=== PATIENT | female | born 1985 | race Caucasian/White ===

== ENCOUNTER 2018-10-18 04:21 | Emergency (ER) | payer MEDICARE, MEDICAID ==
[2018-10-18] MEDS ORDERED: Naproxen TAB* 250 MG PO ONE (04:32)
[2018-10-18] MEDS ORDERED: Clindamycin CAP* 150 MG PO ONE (04:32)
[2018-10-18] MEDS ORDERED: Bupivacaine 0.5% W/EPI SDV* 30 ML VIAL INJ ONE (04:32)
--- NOTE | 2018-10-18 05:02 | ED ---
Throat Pain/Nasal Congestion - HPI Summary HPI Summary: Pt is a 33 y/o F presenting to the ED with a chief complaint of dental pain onset yesterday with rapid increase rated about 9/10. Pt was flossing 2 days ago and believes she irritated the gums. She reports nausea, pain, and sore throat. Pt denies fever, chills, chest pain, shortness of breath, headache, dizziness, or cough. She has taken ibuprofen and Tylenol. Pt is a resident at [facility] for alcoholism. Pt denies hx of asthma, COPD, diabetes, thyroid issues, endocarditis, or bowel disease. - History of Current Complaint Chief Complaint: EDDentalPain Time Seen by Provider: 10/18/18 04:32 Hx Obtained From: Patient Onset/Duration: Sudden Onset, Lasting Days, Still Present Severity: Severe - Allergies/Home Medications Allergies/Adverse Reactions: Allergies Allergy/AdvReac Type Severity Reaction Status Date / Time amoxicillin Allergy Hives Verified 10/18/18 04:26 Penicillins Allergy Hives Verified 10/18/18 04:26 Sulfa (Sulfonamide Allergy Hives Verified 10/18/18 04:26 Antibiotics) PMH/Surg Hx/FS Hx/Imm Hx Previously Healthy: No Endocrine/Hematology History: Denies: Hx Diabetes, Hx Thyroid Disease Respiratory History: Denies: Hx Asthma, Hx Chronic Obstructive Pulmonary Disease (COPD) GI History: Denies: Other GI Disorders Psychiatric History: Reports: Hx Anxiety, Hx Attention Deficit Hyperactivity Disorder, Hx Substance Abuse Infectious Disease History: No Infectious Disease History: Denies: Traveled Outside the [place] in Last 30 Days - Family History Known Family History: Positive: Diabetes - Social History Lives: [facility] - [facility] Alcohol Use: recovering alcoholic 2mos clean Hx Substance Use: Yes Substance Use Type: Reports: Cocaine, Heroin, Marijuana Hx Tobacco Use: Yes Smoking Status (MU): Former Smoker - on and off since 16 y/o Review of Systems Negative: Fever, Chills Positive: Dental Pain Negative: Chest Pain Negative: Shortness Of Breath, Cough Neurological: Negative - dizziness Negative: Headache All Other Systems Reviewed And Are Negative: Yes Physical Exam - Summary Physical Exam Summary: Appearance: Well appearing, no pain distress Skin: warm, dry, reflects adequate perfusion Head/face: normal Eyes: EOMI, DONNA ENT: mucous membranes moist. SL residual L mandibular gingiva, prior removal of second L pre-molar, first L pre-molar eroded to gum line. Neck: supple, non-tender Respiratory: CTA, breath sounds present Cardiovascular: RRR, pulses symmetrical Abdomen: non-tender, soft Bowel Sounds: present Musculoskeletal: normal, strength/ROM intact Neuro: normal, sensory motor intact, A&Ox3 Triage Information Reviewed: Yes Vital Signs On Initial Exam: Initial Vitals Temp Pulse Resp BP Pulse Ox 98.6 F 76 16 135/87 96 10/18/18 04:23 10/18/18 04:23 10/18/18 04:23 10/18/18 04:23 10/18/18 04:23 Vital Signs Reviewed: Yes Procedures - Procedure Summary Procedure Summary: Dental block performed for pain: An inferior alveolar nerve block was performed in the left maxilla with a total of 3 cc of 0.25% bupivacaine with epinephrine. This produced total relief of pain. She tolerated the procedure well without complication. Diagnostics - Vital Signs Vital Signs Temp Pulse Resp BP Pulse Ox 10/18/18 04:23 98.6 F 76 16 135/87 96 - Laboratory Lab Statement: Any lab studies that have been ordered have been reviewed, and results considered in the medical decision making process. Re-Evaluation - Re-Evaluation 1 Re-Evaluation Time: 05:06 Change: Improved Comment: Pain is better with nerve block, pt will be discharged with instructions to follow up with dentist. EENT Course/Dx - Course Course Of Treatment: Nurse's notes reviewed. Gingival swelling adjacent to the left lower first premolar. Likely dental abscess. No fever or sepsis criteria. Pain relieved with nerve block. Aspiration at the site of a small amount of purulent material. Started on clindamycin here which will continue. Rehabilitation center has set her up with dental appointment. - Differential Diagnoses Differential Diagnoses: Other - Dental/facial abscess, trismus, - Diagnoses Provider Diagnoses: Dental abscess, Pain, dental Discharge - Sign-Out/Discharge Documenting (check all that apply): Patient Departure - home - Discharge Plan Condition: Improved Disposition: HOME Prescriptions: Clindamycin Cap(NF) [Clindamycin Cap 300 mg Cap(NF)] 300 mg PO TID #21 cap Naproxen [Naproxen 500 mg tab] 500 mg PO BID PRN #12 tablet.dr DIXON Reason: dental pain Patient Education Materials: Dental Abscess (ED) Referrals: [facility] [Outside] No Primary Care Phys,NOPCP [Primary Care Provider] - Additional Instructions: Call to follow-up with a dentist. Return with fever, increased pain, increased swelling, worse, new symptoms or other concerns. Warm salt water gargles. Warm compresses to the outside of your face may help. - Billing Disposition and Condition Condition: IMPROVED Disposition: Home - Attestation Statements Document Initiated by Scribe: Yes Documenting Scribe: Lilia Coffey Provider For Whom Feng is Documenting (Include Credential): Geronimo Penaloza MD. Scribe Attestation: Lilia Greene, scribed for Geronimo Penaloza MD. on 10/18/18 at 0520. Scribe Documentation Reviewed: Yes Provider Attestation: The documentation as recorded by the scribe, Lilia Coffey accurately reflects the service I personally performed and the decisions made by , Geronimo Penaloza MD. Status of Scribe Document: Viewed
[2018-10-18 05:13] VITALS: BP 131/79
== END 2018-10-18 05:12 | disposition home or self-care (01) ==
LOC: ED 04:21
DX: K04.7 Periapical abscess without sinus (principal); K08.89 Other specified disorders of teeth and supporting structures; Z87.891 Personal history of nicotine dependence; Z88.0 Allergy status to penicillin; Z88.2 Allergy status to sulfonamides
CPT/HCPCS: 99282; A9270-GY

== ENCOUNTER 2018-12-13 11:20 | Emergency (ER) | payer MEDICARE, MEDICAID ==
[2018-12-13] MEDS ORDERED: Famotidine TAB* 20 MG PO ONE (11:31)
[2018-12-13 12:45] LABS: ABS Basophils 0 10^3/ul (0-0.2); ABS Eosinophils 0.6 10^3/ul (0-0.6); ABS Lymphocytes 2.3 10^3/ul (1.0-4.8); ABS Monocytes 0.4 10^3/ul (0-0.8); ABS Neutrophils 4.8 10^3/ul (1.5-7.7); ABS Nucleated RBC 0 10^3/ul; Eosinophil % 7.7 %; Hematocrit 36 % (33-41); Hemoglobin 12.3 g/dL (12.0-16.0); Lymphocyte % 28.5 %; Mean Corpuscular HGB Conc 34 g/dL (31-36); Mean Corpuscular Hemoglobin 28 pg (27-31); Mean Corpuscular Volume 83 fL (80-97); Mean Platelet Volume 9.2 fL (7.4-10.4); Nucleated Red Blood Cells % 0.1; Platelet Count 193 10^3/uL (150-450); Red Blood Count 4.38 10^6 /uL (3.70-4.87); Red Cell Distribution Width 13 % (10.5-15); White Blood Count 8.2 10^3/uL (3.5-10.8)
[2018-12-13 13:11] LABS: Albumin 4.3 g/dL (3.2-5.2); Albumin/Globulin Ratio 1.5 (1-3); BUN/Creatinine Ratio 15.2 (8-20); Calcium 9.7 mg/dL (8.6-10.3); EGFR African American 85.1 (>60); EGFR Non-African American 70.3 (>60); Globulin 2.9 g/dL (2-4); Potassium 4.3 mmol/L (3.5-5.0); Total Bilirubin 0.3 mg/dL (0.2-1.0); Total Protein 7.2 g/dL (6.4-8.9)
[2018-12-13 13:12] LABS: HCG Pregnancy 0.6 mIU/mL
[2018-12-13 13:29] LABS: TSH (Thyroid Stimulating Horm) 3.14 mcIU/mL (0.34-5.60)
[2018-12-13 14:02] LABS: Urine Appearance Cloudy; Urine Bacteria 1+ (Absent); Urine Bilirubin Negative (Negative); Urine Blood Negative (Negative); Urine Color Yellow; Urine Glucose Negative (Negative); Urine Ketones Negative (Negative); Urine Nitrite Negative (Negative); Urine Protein Negative (Negative); Urine Red Blood Cell Trace(0-2/hpf) (Absent); Urine Specific Gravity 1.009 (1.010-1.030); Urine Squamous Epithelial Cell Present (Absent); Urine Urobilinogen Negative (Negative); Urine White Blood Cell Trace(0-5/hpf) (Absent)
[2018-12-13 14:19] VITALS: BP 114/84
--- NOTE | 2018-12-17 14:59 | ED ---
Complex/Multi-Sys Presentation - HPI Summary HPI Summary: Pt. is a 33 y.o female who presents to the ER for evaluation of feeling fatigue and malaise. Pt. notes she had numerous teeth extracted 12/01 and has not been feeling well since. Pt. is currently at [facility] for inpt. drug and ETOH rehab. Pt. denies fever, chills, cp, sob, cough, abd. pain, V/D, urinary sxs. Pt. denies dental pain. Recently on antibx. Sxs are mild in severity. No current modifying factors. - History Of Current Complaint Chief Complaint: EDGeneral Time Seen by Provider: 12/13/18 11:43 Hx Obtained From: Patient - Allergies/Home Medications Allergies/Adverse Reactions: Allergies Allergy/AdvReac Type Severity Reaction Status Date / Time amoxicillin Allergy Hives Verified 12/13/18 11:24 Penicillins Allergy Hives Verified 12/13/18 11:24 Sulfa (Sulfonamide Allergy Hives Verified 12/13/18 11:24 Antibiotics) Home Medications: Home Medications Amitriptyline HCl 50 mg PO DAILY WITH MEAL 12/13/18 [History Confirmed 12/13/18] Atomoxetine(NF) [Strattera(NF)] 80 mg PO DAILY 12/13/18 [History Confirmed 12/13] buPROPion TAB* [Wellbutrin TAB*] 100 mg PO BID 12/13/18 [History Confirmed 12/13] hydrOXYzine HCl [Hydroxyzine HCl] 50 mg PO TID 12/13/18 [History Confirmed 12/13] PMH/Surg Hx/FS Hx/Imm Hx Previously Healthy: Yes Endocrine/Hematology History: Denies: Hx Diabetes, Hx Thyroid Disease Respiratory History: Denies: Hx Asthma, Hx Chronic Obstructive Pulmonary Disease (COPD) GI History: Denies: Other GI Disorders Psychiatric History: Reports: Hx Anxiety, Hx Attention Deficit Hyperactivity Disorder, Hx Substance Abuse - Immunization History Date of Tetanus Vaccine: UTD Date of Influenza Vaccine: UTD Infectious Disease History: No Infectious Disease History: Denies: Traveled Outside the [place] in Last 30 Days - Family History Known Family History: Positive: Diabetes, Non-Contributory - Social History Occupation: Unemployed Lives: [facility]mediate Alcohol Use: has not drank since August Substance Use: Yes Substance Use Type: Reports: Cocaine, Heroin, Marijuana Substance Use Comment - Amount & Last Used: clean since 08/25 Hx Tobacco Use: Yes Smoking Status (MU): Former Smoker Review of Systems Constitutional: Negative Negative: Fever, Chills Eyes: Negative ENT: Negative Negative: Dental Pain, Sore Throat, Ear Ache, Nasal Discharge Cardiovascular: Negative Negative: Chest Pain Respiratory: Negative Negative: Shortness Of Breath, Cough Gastrointestinal: Negative Negative: Abdominal Pain, Vomiting, Diarrhea Genitourinary: Negative Negative: dysuria, discharge Positive: Myalgia Skin: Negative Neurological: Negative All Other Systems Reviewed And Are Negative: Yes Physical Exam Triage Information Reviewed: Yes Vital Signs On Initial Exam: Initial Vitals Temp Pulse Resp BP Pulse Ox 97.6 F 93 16 124/90 99 12/13/18 11:24 12/13/18 11:24 12/13/18 11:24 12/13/18 11:24 12/13/18 11:24 Vital Signs Reviewed: Yes Appearance: Positive: Well-Appearing - Pt. sitting on bed in NAD. Skin: Positive: Warm, Dry Head/Face: Positive: Normal Head/Face Inspection Eyes: Positive: Normal, EOMI, DONNA, Conjunctiva Clear ENT: Positive: Pharynx normal, TMs normal Dental: Positive: Other - Numerous extractions noted to upper jaw without signs of abscess, erythema or edema. Neck: Positive: Supple, Nontender, No Lymphadenopathy Respiratory/Lung Sounds: Positive: Clear to Auscultation, Breath Sounds Present Cardiovascular: Positive: Normal, RRR Abdomen Description: Positive: Nontender, Soft Musculoskeletal: Positive: Normal, Strength/ROM Intact Neurological: Positive: Normal, CN Intact II-III Psychiatric: Positive: Affect/Mood Appropriate Diagnostics - Vital Signs Vital Signs Temp Pulse Resp BP Pulse Ox 12/13/18 14:18 97.9 F 81 16 114/84 96 12/13/18 11:24 97.6 F 93 16 124/90 99 - Laboratory Lab Results: Lab Results 12/13/18 12/13/18 12/13/18 Range/Units 12:37 12:37 13:33 WBC 8.2 (3.5-10.8) 10^3/uL RBC 4.38 (3.70-4.87) 10^6 /uL Hgb 12.3 (12.0-16.0) g/dL Hct 36 (33-41) % MCV 83 (80-97) fL MCH 28 (27-31) pg MCHC 34 (31-36) g/dL RDW 13 (10.5-15) % Plt Count 193 (150-450) 10^3/uL MPV 9.2 (7.4-10.4) fL Neut % (Auto) 58.5 % Lymph % (Auto) 28.5 % [place] % (Auto) 4.7 % Eos % (Auto) 7.7 % Baso % (Auto) 0.6 % Absolute Neuts (auto) 4.8 (1.5-7.7) 10^3/ul Absolute Lymphs (auto) 2.3 (1.0-4.8) 10^3/ul Absolute Monos (auto) 0.4 (0-0.8) 10^3/ul Absolute Eos (auto) 0.6 (0-0.6) 10^3/ul Absolute Basos (auto) 0 (0-0.2) 10^3/ul Absolute Nucleated RBC 0 10^3/ul Nucleated RBC % 0.1 Sodium 136 (135-145) mmol/L Potassium 4.3 (3.5-5.0) mmol/L Chloride 103 (101-111) mmol/L Carbon Dioxide 25 (22-32) mmol/L Anion Gap 8 (2-11) mmol/L BUN 14 (6-24) mg/dL Creatinine 0.92 (0.51-0.95) mg/dL Est GFR ( Amer) 85.1 (>60) Est GFR (Non-Af Amer) 70.3 (>60) BUN/Creatinine Ratio 15.2 (8-20) Glucose 100 (70-100) mg/dL Calcium 9.7 (8.6-10.3) mg/dL Total Bilirubin 0.30 (0.2-1.0) mg/dL AST 26 (13-39) U/L ALT 30 (7-52) U/L Alkaline Phosphatase 94 (34-104) U/L Total Protein 7.2 (6.4-8.9) g/dL Albumin 4.3 (3.2-5.2) g/dL Globulin 2.9 (2-4) g/dL Albumin/Globulin Ratio 1.5 (1-3) Amylase 41 (29-103) U/L Lipase 20 (11.0-82.0) U/L TSH 3.14 (0.34-5.60) mcIU/mL Beta HCG, Quant 0.60 mIU/mL Urine Color Yellow Urine Appearance Cloudy Urine pH 6.0 (5-9) Ur Specific [place] 1.009 L (1.010-1.030) Urine Protein Negative (Negative) Urine Ketones Negative (Negative) Urine Blood Negative (Negative) Urine Nitrate Negative (Negative) Urine Bilirubin Negative (Negative) Urine Urobilinogen Negative (Negative) Ur Leukocyte Esterase Trace A (Negative) Urine WBC (Auto) Trace(0-5/hpf) (Absent) Urine RBC (Auto) Trace(0-2/hpf) (Absent) Ur Squamous Epith Cells Present A (Absent) Urine Bacteria 1+ A (Absent) Urine Glucose Negative (Negative) Result Diagrams: 12/13/18 12:37 12/13/18 12:37 Lab Statement: Any lab studies that have been ordered have been reviewed, and results considered in the medical decision making process. Complex Multi-Symp Course/Dx Course Of Treatment: Pt. presenting with vague c/o fatigue. Exam is unremarkable. Afebrile with stable VS. Basic labs and u/a obtained and are unremarkable. No signs of dental infection on exam. Results discussed with pt. Unclear of etiology of pt.'s fatigue. Will have her f.u with the [facility] for further evaluation if sxs persist. Advised to increase fluids and rest. To return to ER if sxs change or worsen. Pt. understands and agrees with plan. - Diagnoses Provider Diagnoses: Fatigue Discharge - Sign-Out/Discharge Documenting (check all that apply): Patient Departure Patient Received Moderate/Deep Sedation with Procedure: No - Discharge Plan Condition: Good Disposition: HOME Patient Education Materials: Fatigue (ED) Referrals: [facility] [Outside] Additional Instructions: Call the [facility] today to schedule a follow up appointment Increase fluids and rest Return to ER if symptoms change or worsen - Billing Disposition and Condition Condition: GOOD Disposition: Home
== END 2018-12-13 14:18 | disposition home or self-care (01) ==
LOC: ED 11:20
DX: R53.83 Other fatigue (principal); R53.81 Other malaise; M79.10 Myalgia, unspecified site; K08.409 Partial loss of teeth, unspecified cause, unspecified class; F90.9 Attention-deficit hyperactivity disorder, unspecified type; F41.9 Anxiety disorder, unspecified; Z88.0 Allergy status to penicillin; Z88.2 Allergy status to sulfonamides; Z87.891 Personal history of nicotine dependence
CPT/HCPCS: 36415; 80053; 81003; 81015; 82150; 83690; 84443; 84702; 85025; 87086; 99282; A9270-GY